=== PATIENT | male | born 1995 | race Caucasian/White ===

== ENCOUNTER 2016-09-19 22:23 | Emergency (ER) ==
[2016-09-19 22:32] VITALS: BP 100/66; TEMP 94; BMI 5077.2
[2016-09-19] MEDS ORDERED: SODIUM CHLORIDE 1,000 ML IV STA ×2 (22:43→23:58)
[2016-09-19] MEDS ORDERED: ZOFRAN 4 MG/2 ML IVP STA (22:45)
[2016-09-19] MEDS ORDERED: PROTONIX IV IVP STA (22:45)
[2016-09-19 22:56] LABS: BASOPHILS # (AUTO) 0.1 K/uL (0-0.2); BASOPHILS % (AUTO) 0.5 % (0.0-3.0); EOSINOPHILS # (AUTO) 0.1 K/ul (0.0-0.7); EOSINOPHILS % (AUTO) 1.2 % (0.0-7.0); HEMATOCRIT 44.4 % (42.0-52.0); HEMOGLOBIN 14.8 g/dl (14.0-18.0); IMMATURE GRANULOCYTE % (AUTO) 0.4 % (0.0-5.0); LYMPHOCYTES # (AUTO) 4.8 K/uL (0.60-3.4); MEAN CORPUSCULAR HEMOGLOBIN 26.5 pg (27.0-31.0); MEAN CORPUSCULAR HGB CONC 33.3 (31.8-35.4); MEAN CORPUSCULAR VOLUME 79.4 fl (80.0-94.0); MONOCYTES % (AUTO) 8.4 (0-10); NEUTROPHILS # (AUTO) 5.7 K/ul (2.0-6.9); NEUTROPHILS % (AUTO) 48.5; PLATELET COUNT 247 10^3/uL (140-440); RED BLOOD COUNT 5.59 10^6/ul (4.70-6.10); WHITE BLOOD COUNT 11.81 K/ul (4.2-10.2)
[2016-09-19 23:17] LABS: ALBUMIN 4.2 g/dL (3.4-5.0); ALBUMIN/GLOBULIN RATIO 1.24; ANION GAP 15.6; BILIRUBIN,TOTAL 0.29 mg/dL (0.00-1.20); BUN/CREATININE RATIO 13.59; CALCIUM 9.2 mg/dL (8.2-10.2); CREATININE 1.03 mg/dL (0.60-1.10); POTASSIUM 3.6 mmol/L (3.5-5.1); TOTAL PROTEIN 7.6 g/dL (6.4-8.2)
--- NOTE | 2016-09-19 23:23 | CT ---
EXAM: CT head without contrast. HISTORY: Altered mental status. PROCEDURE: Contiguous axial CT images of the head without contrast. FINDINGS: The ventricles and basal cisterns are normal in size and configuration. No evidence of ma ss or midline shift. No intracranial hemorrhage or evidence of large vessel infarct. No extra-axia l fluid collection. The paranasal sinuses and mastoid air cells are well-aerated. Impression: Negative CT of the head.
[2016-09-19 23:44] LABS: ABG BASE EXCESS -5 (-2.0-2.0); ABG HCO3 21.4 (22.0-26.0); ABG TCO2 23 (22.0-28.0)
[2016-09-19 23:45] LABS: ABG PCO2 44.3 mmHg (35-45); ABG PH 7.292 (7.35-7.45)
[2016-09-20 00:34] LABS: ACETAMINOPHEN < 3 ug/ml (10-30); SALICYLATE < 5.0 mg/dL (2.8-20.0)
[2016-09-20 01:27] LABS: ADD URINE MICROSCOPIC NO; BILIRUBIN,URINE Negative (NEGATIVE); KETONES,URINE Negative (NEGATIVE); LEUKOCYTE ESTERASE ,URINE Negative (NEGATIVE); NITRITE,URINE Negative (NEGATIVE); PROTEIN,URINE Negative (NEGATIVE); URINE, BLOOD Negative (NEGATIVE)
[2016-09-20] MEDS ORDERED: PEPCID IVP STA (01:31)
--- NOTE | 2016-09-20 01:37 | DI ---
EXAM: Chest, one-view HISTORY: Vomiting FINDINGS: Cardiac and mediastinal contours are normal. Pulmonary vasculature is normal. Lungs are clear. Bony thorax is unremarkable. IMPRESSION: Within normal limits
[2016-09-20 02:08] LABS: COCAIN SCREEN,URINE NEGATIVE (NEGATIVE)
--- NOTE | 2016-09-20 06:11 | ED.PDOC ---
General ED Provider: Dr. ANDREW DUKES-ER Chief Complaint: Alcohol Intoxication Stated Complaint: he had several drinks --he turned 21 today---had alliance party at [employer] and became confused and vomiting Time Seen by Physician: 22:25 Mode of Arrival: Wheelchair Information Source: Family Exam Limitations: No limitations Primary Care Provider: MARTIN SHARP Nursing and Triage Documentation Reviewed and Agree: Yes Neurological Complaint Exam - Altered Mental Status Complaint/Exam Current Mental Status: Confusion Last Known Well: today Onset: Gradual Symptoms Are: Still present Timing: Constant Episodes Lasting: Hours Initial Severity: Mild Current Severity: Moderate Eye Deviation Present: No Character: Reports: Responsiveness, Lethargy Aggravating: Reports: Ingestion Alleviating: Reports: None Associated Signs and Symptoms: Reports: Nausea, Vomiting. Denies: Dizziness, Weakness, Headache, Fever, Illness, Nuchal rigidity, Seizure, Recently depressed , Trauma Related History: Reports: Similar episode Cardiac Risk Factors: Reports: None CVA Risk Factors: Reports: None Related Surgical History: Reports: None Carotid Bruit Present: No Nystagmus Present: No Gag Reflex Present: Yes Meningeal Signs Positive: No Focal Weakness: Present: None Focal Sensory Loss: Present: None Gait: Ataxic Signs of Injury: Present: Normal findings Thrombolytics Considered: No Differential Diagnoses: Intoxication, Intracranial Bleed Review of Systems - Review Of Systems Constitutional: Reports: No symptoms Eyes: Reports: No symptoms Ears, Nose, Mouth, Throat: Reports: No symptoms Respiratory: Reports: No symptoms Cardiac: Reports: No symptoms GI: Reports: Nausea, Vomiting : Reports: No symptoms Musculoskeletal: Reports: No symptoms Skin: Reports: No symptoms Neurological: Reports: Cognitive dysfunction Endocrine: Reports: No symptoms Hematologic/Lymphatic: Reports: No symptoms All Other Systems: Reviewed and Negative Past Medical History - Past Medical History Endocrine: Reports: Unknown, Other Cardiovascular: Reports: Unknown Respiratory: Reports: Unknown Hematological: Reports: Unknown Gastrointestinal: Reports: Unknown Genitourinary: Reports: Unknown Neuro/Psych: Reports: Unknown Musculoskeletal: Reports: Unknown Cancer: Reports: Unknown - Surgical History General Surgical History: Reports: Unknown - Family History Family History: Reports: Unknown - Social History Smoking Status: Never smoker Hx Substance Use: No Alcohol Screening: Occasionally Lives: With family Physical Exam - Physical Exam Appearance: Well-appearing, No pain distress, Well-nourished Eyes: NAYE, EOMI, Conjunctiva clear ENT: Ears normal, Nose normal, Oropharynx normal Neck: Supple Respiratory: Airway patent, Breath sounds clear, Breath sounds equal, Respirations nonlabored Cardiovascular: RRR, Pulses normal, No rub, No murmur GI/: Soft Musculoskeletal: Normal strength, ROM intact, No edema, No calf tenderness Skin: Warm, Dry, Normal color Neurological: Sensation intact, Alert, Oriented Psychiatric: Affect appropriate, Mood appropriate Interpretation - Radiology Interpretation Radiology Interpretation By: Radiologist Radiology Results: Negative Exam Interpreted: CXR, CT Scan Re-Evaluation - Re-Evaluation Time of Re-Evaluation: 06:12 Status: Improved Vital Signs Stable: Yes Pain Level: 0 Appearance: NAD Lungs: Clear Skin: Warm and Dry Neuro: Alert and Oriented X3 CV: RRR Additional Comments: no nausea--feeling much better Critical Care Note - Critical Care Note Total Time (mins): 0 Course - Course Hematology/Chemistry: 09/19/16 22:50 09/19/16 22:50 Orders, Labs, Meds: Lab Review 09/19/16 09/19/16 09/19/16 22:43 22:50 23:00 WBC 11.81 H RBC 5.59 Hgb 14.8 Hct 44.4 MCV 79.4 L MCH 26.5 L MCHC 33.3 RDW Coeff of Jono 13.0 Plt Count 247 Immature Gran % (Auto) 0.4 Neut % (Auto) 48.5 Lymph % (Auto) 41.0 Cloud % (Auto) 8.4 Eos % (Auto) 1.2 Baso % (Auto) 0.5 Immature Gran # (Auto) 0.1 Neut # 5.7 Lymph # 4.8 H Cloud # 1.0 Eos # 0.1 Baso # 0.1 Puncture Site Lr O2 Saturation 94.0 L ABG pH 7.292 L* ABG pCO2 44.3 ABG pO2 74.0 L ABG HCO3 21.4 L ABG Total CO2 23 ABG Base Excess -5 L Kevin Test + FiO2 % 21.0 Sodium 139 Potassium 3.6 Chloride 105 Carbon Dioxide 22 Anion Gap 15.6 BUN 14 Creatinine 1.03 Estimated GFR (MDRD) 91.00 BUN/Creatinine Ratio 13.59 Glucose 155 H Calcium 9.2 Total Bilirubin 0.29 AST 37 ALT 77 Alkaline Phosphatase 74 Total Protein 7.6 Albumin 4.2 Globulin 3.4 Albumin/Globulin Ratio 1.24 Amylase 50 Lipase 16 Urine Color Urine Clarity Urine pH Ur Specific [place] Urine Protein Urine Glucose (UA) Urine Ketones Urine Blood Urine Nitrite Urine Bilirubin Urine Urobilinogen Ur Leukocyte Esterase Salicylate Level mg/dL < 5.0 Urine Opiates Screen Ur Oxycodone Screen Urine Methadone Screen Ur Propoxyphene Screen Acetaminophen < 3 L Ur Barbiturates Screen U Tricyclic Antidepress Ur Phencyclidine Scrn Ur Amphetamine Screen U Methamphetamines Scrn U Benzodiazepines Scrn Urine Cocaine Screen U Cannabinoids Screen Plasma/Serum Alcohol 168.5 H 09/20/16 01:15 WBC RBC Hgb Hct MCV MCH MCHC RDW Coeff of Jono Plt Count Immature Gran % (Auto) Neut % (Auto) Lymph % (Auto) Cloud % (Auto) Eos % (Auto) Baso % (Auto) Immature Gran # (Auto) Neut # Lymph # Cloud # Eos # Baso # Puncture Site O2 Saturation ABG pH ABG pCO2 ABG pO2 ABG HCO3 ABG Total CO2 ABG Base Excess Kevin Test FiO2 % Sodium Potassium Chloride Carbon Dioxide Anion Gap BUN Creatinine Estimated GFR (MDRD) BUN/Creatinine Ratio Glucose Calcium Total Bilirubin AST ALT Alkaline Phosphatase Total Protein Albumin Globulin Albumin/Globulin Ratio Amylase Lipase Urine Color Yellow Urine Clarity Clear Urine pH 5.0 Ur Specific [place] 1.010 Urine Protein Negative Urine Glucose (UA) Negative Urine Ketones Negative Urine Blood Negative Urine Nitrite Negative Urine Bilirubin Negative Urine Urobilinogen 0.2 Ur Leukocyte Esterase Negative Salicylate Level mg/dL Urine Opiates Screen Negative Ur Oxycodone Screen Negative Urine Methadone Screen Negative Ur Propoxyphene Screen Negative Acetaminophen Ur Barbiturates Screen Negative U Tricyclic Antidepress Negative Ur Phencyclidine Scrn Negative Ur Amphetamine Screen Negative U Methamphetamines Scrn Negative U Benzodiazepines Scrn Negative Urine Cocaine Screen Negative U Cannabinoids Screen Negative Plasma/Serum Alcohol Orders Category Date Time Status ABG DRAW REQUEST Stat CARDIO 09/19/16 22:43 Completed EKG-(ED ONLY) Stat CARDIO 09/19/16 22:43 Completed IV [ED IV/MEDIPORT/POWERPORT] .ONCE EMERGENCY 09/19/16 22:43 Active ABG Stat LAB 09/19/16 22:43 Completed AMYLASE Stat LAB 09/19/16 22:50 Completed CBC W/ AUTO DIFF Stat LAB 09/19/16 22:50 Completed COMPREHENSIVE METABOLIC PANEL Stat LAB 09/19/16 22:50 Completed ETOH LEVEL [BLOOD ALCOHOL] Stat LAB 09/19/16 22:50 Completed LIPASE Stat LAB 09/19/16 22:50 Completed SALICYLATE Stat LAB 09/19/16 23:00 Completed TYLENOL LEVEL [ACETAMINOPHEN] Stat LAB 09/19/16 23:00 Completed URINALYSIS C & S IF INDICATED Stat LAB 09/20/16 01:15 Completed URINE DRUG SCREEN (RAPID FOR ED) [DRUG SCREEN, URINE, LAB 09/20/16 01:15 Completed RAPID] Stat 0.9 % Sodium Chloride [Saline Flush] MEDS 09/19/16 22:43 Ordered 1 syr IVF PRN PRN Famotidine Inj [Pepcid] MEDS 09/20/16 01:31 Discontinued 40 mg IVP ONCE STA Ondansetron HCl/Pf [Zofran 4 mg/2 ml] MEDS 09/19/16 22:45 Discontinued 4 mg IVP ONCE STA Pantoprazole Sodium [Protonix IV] MEDS 09/19/16 22:45 Discontinued 40 mg IVP ONCE STA Sodium Chloride 0.9% [Sodium Chloride] 1,000 ml MEDS 09/19/16 23:58 Active IV 125 mls/hr Sodium Chloride 0.9% [Sodium Chloride] 1,000 ml MEDS 09/19/16 22:[address] HEAD W/O CONTRAST Stat RADS 09/19/16 22:44 Completed CXR [CHEST, 1V AP ONLY] Stat RADS 09/19/16 22:44 Completed Medications Generic Name Dose Route Start Last Admin Trade Name Freq PRN Reason Stop Dose Admin Sodium Chloride 1,000 mls @ 125 mls/hr 09/19/16 23:58 09/20/16 00:15 Sodium Chloride IV 09/20/16 07:57 125 mls/hr .Q8H STA Administration Sodium Chloride 1 syr 09/19/16 22:43 09/19/16 22:59 Saline Flush IVF 1 syr PRN PRN Administration To flush IV Discontinued Medications Generic Name Dose Route Start Last Admin Trade Name Freq PRN Reason Stop Dose Admin Famotidine 40 mg 09/20/16 01:31 09/20/16 02:05 Pepcid IVP 09/20/16 01:32 40 mg ONCE STA Administration Sodium Chloride 1,000 mls @ 1,000 mls/hr 09/19/16 22:43 09/19/16 22:58 Sodium Chloride IV 09/19/16 23:42 1,000 mls/hr BOLUS STA Administration Ondansetron HCl 4 mg 09/19/16 22:45 09/19/16 22:59 Zofran 4 Mg/2 Ml IVP 09/19/16 22:46 4 mg ONCE STA Administration Pantoprazole Sodium 40 mg 09/19/16 22:45 09/19/16 23:43 Protonix Iv IVP 09/19/16 22:46 40 mg ONCE STA Administration Vital Signs: Temp Pulse Resp BP Pulse Ox 09/19/16 22:24 94 F L 77 16 100/66 97 Departure - Departure Time of Disposition: 06:12 Disposition: HOME SELF-CARE Discharge Problem: Alcohol intoxication Instructions: Alcohol Intoxication (ED), Acute Delirium (ED) Condition: Good Pt referred to PMD for follow-up: Yes Additional Instructions: f/u wtih dr sharp Allergies/Adverse Reactions: Allergies No Known Allergies Allergy (Verified 09/19/16 22:35) Home Medications: Ambulatory Orders Dextroamphetamine/Amphetamine [Adderall 30 mg Tablet] 30 mg PO DAILY 07/23/13 Disposition Discussed With: Patient, Family
== END 2016-09-20 06:25 | disposition home or self-care (01) ==
LOC: ED 22:23
DX: F10.129 Alcohol abuse with intoxication, unspecified (principal); R11.2 Nausea with vomiting, unspecified
CPT/HCPCS: 36415; 80053; 80306; 80307; 81001; 82150; 82803; 83690; 85025; 93005; 93010; 96361; 96374; 96375; 99284